=== PATIENT | female | born 1965 | race Caucasian/White ===

== ENCOUNTER 2020-05-25 12:59 | Day surgery (SDC) | payer BC, OTHER ==
[~2020-05-25] VITALS: Ht 175.3 cm; Wt 74.0 kg
[2020-05-25] MEDS ORDERED: BUPIVACAINE/PF 0.5% ONE (13:14)
[2020-05-25] MEDS ORDERED: EPINEPHRINE 1 MG/ML, 1ML ONE (13:15)
[2020-05-25] MEDS ORDERED: CHLORHEXIDINE 15 ML UDC MM ONE (13:30)
[2020-05-25] MEDS ORDERED: LIDOCAINE-MPF 1%, 2ML INFIL ONE (13:30)
[2020-05-25] MEDS ORDERED: LACTATED RINGERS 1,000 ML IV SCH (13:30)
[2020-05-25] MEDS ORDERED: CHLORHEXIDINE 15 ML UDC ONE (13:32)
[2020-05-25 13:43] VITALS: BP 131/91
[2020-05-25] MEDS ORDERED: PLEASE ENTER HEIGHT AND WEIGHT MC SCH (14:00)
[2020-05-25] MEDS ORDERED: VANCOMYCIN PMX 1GM/200ML 200 ML IV ONE (14:00)
[2020-05-25 14:14] LABS: BASOPHILS % (AUTO) 1 % (0-1); EOSINOPHILS % (AUTO) 1 % (1-7); LYMPHOCYTES % (AUTO) 26 % (22-44); MEAN CORPUSCULAR HEMOGLOBIN 34.4 pg (27.0-34.8); MONOCYTES % (AUTO) 6 % (2-9); NEUTROPHILS % (AUTO) 67 % (42-75); PLATELET COUNT 194 x10^3/uL (130-400); RED BLOOD COUNT 4.08 x10^6/uL (3.82-5.3); RED CELL DISTRIBUTION WIDTH 13.3 % (9.6-15.2)
[2020-05-25 14:15] LABS: MD NO
[2020-05-25] MEDS ORDERED: MIDAZOLAM 1 MG/ML, 2ML ONE (14:15)
[2020-05-25 14:17] LABS: HCT (SEDRATE) 40.5 % (34.6-47.8)
[2020-05-25] MEDS ORDERED: FENTANYL PF 250 MCG/5ML ONE (14:17)
[2020-05-25 14:24] LABS: ANION GAP 8 mmol/L (5-15); CHLORIDE 109 mmol/L (98-107); CREATININE 0.69 mg/dL (0.55-1.02); INTERNATIONAL NORMALIZED RATIO 0.95 (0.93-1.1); PROTHROMBIN TIME 10.2 Seconds (9.6-11.5)
[2020-05-25] MEDS ORDERED: OMNIPAQUE 180 MG/ML, 20ML VIAL IT ONE (14:55)
[2020-05-25] MEDS ORDERED: OMNIPAQUE 180 MG/ML, 20ML VIAL ONE (15:10)
[2020-05-25] MEDS ORDERED: OXYcodone 5 MG/5 ML ORAL.SOL UDC ONE (15:29)
[2020-05-25] MEDS ORDERED: ACETAMINOPHEN 650 MG/20.3 ML UDC ONE (15:29)
[2020-05-25] MEDS ORDERED: FENTANYL PF 100 MCG/2ML ONE (15:29)
[2020-05-25] MEDS ORDERED: PROMETHAZINE 12.5 MG SUPP PR PRN (15:30)
[2020-05-25] MEDS ORDERED: PROMETHAZINE 25 MG/ML, 1ML IVPush PRN (15:30)
[2020-05-25] MEDS ORDERED: LABETALOL 5MG/ML, 20ML IV PRN (15:30)
[2020-05-25] MEDS ORDERED: ACETAMINOPHEN 325 MG TABLET PO PRN (15:30)
[2020-05-25] MEDS ORDERED: ALBUTEROL SULFATE 2.5 MG/3 ML NPPB PRN (15:30)
[2020-05-25] MEDS: OXYcodone 5 MG/5 ML ORAL.SOL UDC PO PRN (15:30)
[2020-05-25] MEDS ORDERED: DIAZEPAM 5 MG/ML, 2ML IVPush PRN (15:30)
[2020-05-25] MEDS ORDERED: DIPHENHYDRAMINE 50 MG/ML, 1ML IVPush PRN (15:30)
[2020-05-25] MEDS ORDERED: ONDANSETRON 2MG/ML, 2ML IVPush PRN (15:30)
[2020-05-25] MEDS ORDERED: HYDROmorphone 1 MG/ML, 1ML INJ IVPush PRN (15:30)
[2020-05-25] MEDS ORDERED: MEPERIDINE/PF 25MG/0.5ML IVPush PRN (15:30)
[2020-05-25] MEDS ORDERED: FENTANYL PF 100 MCG/2ML IV PRN (15:30)
[2020-05-25] MEDS ORDERED: MIDAZOLAM 1 MG/ML, 2ML IV PRN (15:30)
[2020-05-25] MEDS ORDERED: hydrALAzine 20 MG/ML, 1ML IV PRN (15:30)
[2020-05-25] MEDS ORDERED: EPHEDRINE 50 MG/ML, 1ML IVPush PRN (15:30)
[2020-05-25] MEDS ORDERED: MEPERIDINE/PF 25MG/ML,1ML ONE (15:40)
[2020-05-25] MEDS ORDERED: ONDANSETRON 2MG/ML, 2ML ONE (15:57)
[2020-05-25] MEDS ORDERED: PROPOFOL 10 MG/ML, 20ML ONE (15:57)
[2020-05-25] MEDS ORDERED: DEXAMETHASONE 4 MG/ML, 1ML ONE (15:57)
[2020-05-25] MEDS ORDERED: ROCURONIUM 10MG/ML,5ML ONE (15:57)
[2020-05-25] MEDS ORDERED: SUGAMMADEX 200 MG/2 ML IVPush ONE (15:57)
[2020-05-25] MEDS ORDERED: HYDR-1067 PO (16:43)
== END 2020-05-25 17:03 | disposition home or self-care (01) ==
LOC: OUT 12:59
PROVIDERS: ATTEND Orthopaedic Surgery Orthopaedic Surgery of the Spine
DX: S32.020A Wedge compression fracture of second lumbar vertebra, initial encounter for closed fracture (principal); M48.061 Spinal stenosis, lumbar region without neurogenic claudication; Z20.822 Contact with and (suspected) exposure to COVID-19; Z79.01 Long term (current) use of anticoagulants; Z79.899 Other long term (current) drug therapy; X58.XXXA Exposure to other specified factors, initial encounter; Y93.89 Activity, other specified; Y92.89 Other specified places as the place of occurrence of the external cause; Y99.8 Other external cause status
CPT/HCPCS: 22514; 36415; 71045; 72100; 80048; 85025; 85610; 85651; 85730; 87635; 88307; 88311; 93005; C1713; J0171; J1100; J2175; J2250; J2405; J2704; J3010; J3370; J7120; Q9965